=== PATIENT | male | born 1965 | race Caucasian/White ===

== ENCOUNTER 2020-08-11 17:09 | Emergency (ER) | payer OTHER ==
[2020-08-11] MEDS ORDERED: PERCOCET 7.5-31 EACH PO (19:25)
[2020-08-12] MEDS ORDERED: PERCOCET 7.5-31 EACH PO (01:16)
== END 2020-08-11 22:06 | disposition home or self-care (01) ==
LOC: ER1 17:09
DX: S22.41XA Multiple fractures of ribs, right side, initial encounter for closed fracture (principal); S42.021A Displaced fracture of shaft of right clavicle, initial encounter for closed fracture; V49.40XA Driver injured in collision with unspecified motor vehicles in traffic accident, initial encounter; Y92.410 Unspecified street and highway as the place of occurrence of the external cause
CPT/HCPCS: 71111; 73000; 73030; 99283